=== PATIENT | male | born 1995 | race Hispanic/Latino ===

== ENCOUNTER → 2016-10-11 | Outpatient (CLI) | payer OTHER ==
[~2016-10-11] MED LIST: ISOVUE-370 76% 100ML VIAL (Q9967) As Ordered ONE
--- NOTE | 2016-10-11 13:47 | REP ---
CT ANGIOGRAPHY OF THE BRAIN. HISTORY: Exertional headaches. CT FINDINGS: Contrast enhanced CT scanning is acquired and 2 mm axial images are reformatted. Coronal and sagittal multiplanar re-formation images are generated. Thick slab MIP images are generated reviewed in the coronal and axial plane and 3D surface rendered color images are generated and reviewed. CT contrast dose: 100 mL of Isovue [address] ANGIOGRAPHIC FINDINGS: The distal vertebral arteries are patent. Basilar artery is widely patent. Posterior cerebral and superior cerebellar vessels are normal in appearance. The distal internal carotid arteries are unremarkable. Anterior and middle cerebral arteries are intact. No vessel cutoff is seen. No roman aneurysm or arteriovenous malformation is apparent. IMPRESSION: Unremarkable CT angiography of the brain with IV contrast. Signed by Tamir Kunz MD 10/11/2016 05:12 P
--- NOTE | 2016-10-11 13:47 | REP ---
CT angiography of the neck with IV contrast: History: Exertional headaches. Technique: Helical scanning is acquired. 2 mm axial images are reformatted. Coronal and sagittal multiplanar re-formation images are generated and reviewed. Maximal intensity projection images are generated in the coronal and sagittal imaging plane and 3-D surface rendered color vascular images are generated and viewed rotationally. CT angiographic findings: No extravascular abnormality is observed. 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 The great vessel origins are normal in appearance. Common carotid arteries are unremarkable. There is no evidence of bulb or internal carotid artery plaquing. There is no evidence to suggest dissection. The internal carotid arteries are unremarkable bilaterally. The basilar arteries are widely patent and codominant. Surface rendered 3-D and MIP images show no additional abnormality. Impression: Normal CT angiography of the neck. Signed by Tamir Kunz MD 10/11/2016 05:12 P
== END ==
LOC: M RAD 07:50
PROVIDERS: ATTEND Family Medicine
DX: R51 Headache (principal)